=== PATIENT | male | born 2000 | race Two or more races ===

== ENCOUNTER 2023-06-18 21:16 | Emergency (ER) | payer OTHER ==
[~2023-06-18] VITALS: Ht 180.3 cm; Wt 95.3 kg
[2023-06-18] MEDS ORDERED: ALBUTEROL0.63 MG/3 IH (21:29)
[2023-06-18] MEDS ORDERED: WIXELA 100-501 EACH (21:29)
[2023-06-18 22:20] LABS: HEMATOCRIT 48.2 % (39.0-48.0); HEMOGLOBIN 16.8 g/dL (13-16.00); MEAN CELL VOLUME 83.7 fL (80.0-100.00); MEAN CORPUSCULAR HEMOGLOBIN 29.1 pg (27.00-32.0); MEAN CORPUSCULAR HGB CONC 34.8 g/dl (32.0-36.0); PLATELET COUNT 169 K/uL (150-450); RED BLOOD COUNT 5.76 M/uL (4.00-6.00); RED CELL DISTRIBUTION WIDTH 14.3 % (11.5-14.5)
[2023-06-18 23:39] LABS: ALBUMIN 3.8 gm/dL (3.4-5.0); BILIRUBIN TOTAL 1.15 mg/dL (0.3-1.2); CALCIUM 8.8 mg/dL (8.5-10.1); CREATININE SERUM 0.89 mg/dL (0.70-1.30); GFR 105.93; GLOBULINA 3.8 G/DL (2.4-3.5); POTASSIUM 3.6 mEq/L (3.5-5.1); TOTAL PROTEIN 7.6 gm/dL (6.4-8.2)
[2023-06-18] MEDS ORDERED: CIPRO500 MG PO (23:46)
[2023-06-18] MEDS ORDERED: PEPCID AC20 MG PO (23:46)
[2023-06-18] MEDS ORDERED: ONDANSETRON ODT8 MG PO (23:46)
== END 2023-06-19 00:38 | disposition home or self-care (01) ==
LOC: ER 21:16
PROVIDERS: General Practice
DX: K52.89 Other specified noninfective gastroenteritis and colitis (principal)